=== PATIENT | male | born 2000 | race Two or more races ===

== ENCOUNTER 2024-02-18 16:22 | Emergency (ER) | payer OTHER ==
[~2024-02-18] VITALS: Ht 172.7 cm; Wt 70.0 kg
[2024-02-18 16:29] VITALS: TEMP 98.7; O2SAT 99
[2024-02-18 17:00] VITALS: BP 118/80; PULSE 90; RESP 18; O2SAT 99
== END 2024-02-18 17:50 ==
LOC: ER 16:22
DX: M25.539 Pain in unspecified wrist (principal); Z65.3 Problems related to other legal circumstances
CPT/HCPCS: 99283